=== PATIENT | female | born 1960 | race Caucasian/White ===

== ENCOUNTER 2016-06-24 18:49 | Observation (INO) | payer MEDICAID, OTHER ==
[2016-06-24] MEDS ORDERED: ALBUTEROL SULFATE 2.5 MG/0.5 ML VIAL.NEB IH ONE ×2 (21:04→21:34)
[2016-06-24] MEDS ORDERED: NORMAL SALINE 1,000 ML IV PRN (21:04)
--- NOTE | 2016-06-24 21:05 | ERNOTE ---
ER Female HPI Date of Service: 06/24/16 Stated Complaint: GI BLEEDING Time Seen by Provider: 06/24/16 20:55 Source: patient Exam Limitations: no limitations Immunizations: IMMUNIZATION HX Immunizations Up to Date Yes History of Influenza Vaccine No Hx Pneumococcal Vaccination No Allergies/Adverse Reactions: Allergies Penicillins Allergy (Intermediate, Verified 10/23/14 07:27) rash Sulfa (Sulfonamide Antibiotics) [Sulfa(Sulfonamide Antibiotics)] Allergy ( Intermediate, Verified 10/23/14 07:27) rash Home Medications: HOME MEDICATIONS Multivitamin [One Daily Essential] 1 each PO DAILY 06/24/16 [Last Taken Unknown] Omeprazole [Prilosec] 20 mg PO DAILY 06/24/16 [Last Taken Unknown] - History of Present Illness Narrative: 55 year old that complains of being weak, and has been progressive over the last week. Fell ont to her back two days ago, but did not have a head injury or LOC. Her and the patient are concerned that she may have "internal bleeding" as she did on another occasion which may be causing the weakness. The previous occasion whereby there were similar symptoms there was GI bleeding that required banding. Notes gross hematuria for two days. Complaint of right sided chest pain and abdominal pain for a few days. Drinks 4-6 beers daily for many years. Timing: Present: constant Quality: Present: moderate Activities at Onset: Present: none Prior Abdominal Problems: Present: none Modifying Factors - (Improves): Present: other - nothing Modifying Factors - (Worsens): Present: other - nothing Associated Symptoms: Present: denies symptoms Review of Systems - Narrative Narrative: Appears mildly jaundiced, but not in any distress. - Review of Systems Constitutional: Present: chills EYE: Present: no symptoms reported ENT: Present: no symptoms reported Respiratory: Present: no symptoms reported Cardiology: Present: chest pain Gastrointestinal/Abdominal: Present: abdominal pain Genitourinary: Present: other Musculoskeletal: Present: no symptoms reported Skin: Present: no symptoms reported Neurological: Present: no symptoms reported Endocrine: Present: no symptoms reported Hematologic/Lymphatic: Present: easy bleeding Psych: Present: no symptoms reported - Patient's Past Medical History Patient History - Medical: Anemia, Alcohol Abuse, GERD, Liver Disease, UTI'S Patient History - Cardiac/Respiratory: Other Patient History - Cancer: No Hx of Cancer Patient History - Surgical Procedures: Tubal Ligation Patient History - Other: None - Family History Mother Family History - Medical: Family History - Cancer: Lung Father Family History - Medical: , Renal Failure - Social History Living Situations: home Abuse History: No History of abuse Psych History: No pertinent hx Smoking Status: Current every day smoker Patient requests Smoking Cessation Consult: No Initiate information on Smoking Cessation: No Alcohol Use: heavy Drug Use: none - Immunizations Immunizations Up to Date: Yes Hx Pneumococcal Vaccination: No History of Influenza Vaccine: No Physical Exam - Physical Exam General Appearance: Present: no apparent distress Eye Exam: PERRL: bilateral, EOMI: bilateral, Scleral icterus: bilateral Ears, Nose, Throat: Present: normal ENT inspection Neck: Present: normal inspection, full range of motion Respiratory: Present: no respiratory distress, decreased breath sounds, wheezing - mild. 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 - Vital Signs Patient's Vital Signs:: I have reviewed the patient's vital signs. Vital Signs: Vital Signs 06/24/16 19:05 Temperature 38.7 C H Pulse Rate 135 H Respiratory 20 Rate Blood Pressure 157/68 O2 Sat by Pulse 95 Oximetry - EKG EKG: other EKG Comments: sinus tachycardia, rate 119, normal axis. No change from the previous EKG. - X-Ray X-Ray #1 X-Ray: chest Interpretation: Interp. by me X-ray Comments: NAD - CT/Ultrasound CT/Ultrasound Narrative: Stones in partially contracted gallbladder. Right perinephric stranding may be related to pyelosinus backflow/obstructive uropathy inflammatory /infectious process, or age-related. - Progress/Reassessment Chief Complaint: Genitourinary Problem Progress Note-Subjective: 06/25/16 00:53 Feeling better since getting one liter of fluid. 06/25/16 00:54 Discussed with Lorraine who has accepted the patient for admission. Hemodynamically stable. 06/25/16 00:59 06/25/16 07:28 Departure Clinical Impression: UTI (urinary tract infection), Hematuria, gross, Hyperbilirubinemia - Departure Disposition: [facility] Condition: Fair
[2016-06-24 21:23] LABS: Venous Blood Gas HCO3 17.1 mmol/L (22.0-29.0); Venous Blood Gas pH 7.38 (7.32-7.43)
[2016-06-24 21:26] LABS: Hematocrit 33.1 % (37.0-47.0); Hemoglobin 10.5 gm/dL (12.5-16.0); Mean Cell Volume 97.9 fl (78-100); Mean Corpuscular Hemoglobin 31.1 pg (27-31); Mean Corpuscular Hgb Conc 31.7 g/dl (32-36); Mean Platelet Volume 11.1 fl (6.0-9.5); Platelet Count 102 K/mm3 (150-450); Red Blood Count 3.38 M/mm3 (4.2-5.4); Red Cell Distribution Width 18.4 % (11.5-14.0); White Blood Count 7.9 K/mm3 (4.0-10.5)
[2016-06-24 21:35] LABS: Total Cells Counted 100
[2016-06-24 21:38] LABS: INR 1.17 INR (0.90-1.10); Partial Thrombolplastin Time 26.1 Seconds (24-32); Prothrombin Time (Patient) 12.2 Seconds (9.4-11.4)
[2016-06-24 21:51] LABS: Blood Urea Nitrogen 22 mg/dL (3-23); Glucose * 101 mg/dL (70-110)
[2016-06-24 21:52] LABS: ALT 18 U/L (19-67); AST 36 U/L (0-48); Albumin * 2.7 gm/dl (3.4-5.0); Alkaline Phosphatase * 166 U/L (50-170); Anion Gap 15.1 mmol/L (6.8-13.8); BUN/Creatinine Ratio 11.7 (9.0-21.6); Bilirubin, Total 2.3 mg/dL (0.0-1.1); Ca. Corrected For Albumin 9.9 mg/dL (8.4-10.2); Calcium * 9.2 mg/dL (7.9-10.9); Carbon Dioxide 20.1 mmol/L (24-32.6); Chloride 107 mmol/L (97-106); Potassium 3.2 mmol/L (3.4-4.6); Sodium 139 mmol/L (132-142); Total Protein 7.8 gm/dL (6.2-8.2); Troponin I Less than 0.017 ng/ml (0.00-0.10)
[2016-06-24 22:19] LABS: Urine Bilirubin 1 mg/dl (NEGATIVE); Urine Blood 250 /ul (NEGATIVE); Urine Ketone 5 mg/dL (NEGATIVE); Urine Nitrite Negative (NEGATIVE); Urine Protein 100 mg/dL (NEGATIVE); Urine Specific Gravity 1.025 SP.GR. (1.005-1.010); Urine Urobilinogen Normal (NORMAL)
[2016-06-24 22:42] LABS: Urine Appearance Turbid; Urine Bacteria 4+; Urine Color Red; Urine RBC >50 /hpf (0-5); Urine WBC 0-5 /hpf (0-5)
[2016-06-24 22:46] LABS: Band 8 % (0-2.0); Lymphocyte 3 % (20-51); Monocyte 4 % (0-9); Neutrophil 85 % (42-75); Neutrophil # 6.7 K/mm3 (1.3-6.0)
[2016-06-24 22:47] LABS: Platelet Estimate Decreased (NORMAL)
[2016-06-24 22:48] LABS: Anisocytosis 2+; Hypochromia 1+; Macrocytosis 1+; Poikilocytosis 1+
[2016-06-25] MEDS ORDERED: POTASSIUM CHLORIDE 20 MEQ TABLET.SA PO ONE (00:50)
[2016-06-25] MEDS ORDERED: POTASSIUM CHLORIDE 20 MEQ TABLET.SA ONE (01:11)
[2016-06-25] MEDS ORDERED: FLU VACC QS2016-17 36MOS UP/PF 60 MCG/0.5 ML DISP.SYRIN IM ONE ×2 (02:25→09:00)
[2016-06-25] MEDS ORDERED: NORMAL SALINE 1,000 ML IV PRN (02:50)
[2016-06-25] MEDS ORDERED: ALBUTEROL SULFATE/IPRATROPIUM 3 ML NEBU IH PRN (02:52)
[2016-06-25] MEDS ORDERED: NICOTINE 14 MG PATC TD SCH ×2 (03:00→03:58)
--- NOTE | 2016-06-25 03:26 | HP ---
Chief Complaint - Chief Complaint Date of Service: 06/25/16 Time of Service: 03:19 Chief Complaint: weakness, hematuria History of Present Illness: Pt is a 55 year old pt of Dr. Henderson with a PMH significant for:GIB (2014), alcoholic cirrhosis, anemia, ETOH abuse, and GERD who presented to the ER with c /o weakness and malaise. She is overall a poor historian and drifts in and out of sleep during my examination. She states that she started feeling bad about five days ago with sore throat, cough, malaise, and weakness. Since then her breathing has progressively gotten worse, now with tachypnea, expiratory wheezing, and dyspnea at rest. She also notes hematuria and dysuria for the past week. She has been taking bear back body at home for pain with slight improvement in her symptoms. Per EMR she fell onto to her back two days ago, but did not have a head injury or LOC. As well as complaints of right sided chest and abdominal pain for a few days. She denied this pain upon my examination. She drinks 4-6 beers daily and has so for many years. She has a history of GIB in 2010 and 2014. In the ER laboratory findings were significant for: WBC 7.9, H/H 10.5/33.1, Plt 102, 8% bands, 84% neutrophils, INR 1.17, Na+ 139, K+ 3.2, lactic acid 2.3, bili 2.3. + UA +4 bacteria, negative nitrates and leukocyte esterase. CT abdomen with evidence of intrarenal calculi as well as right perinephric straining possibly related to pyelosinus backflow/obstructive uropathy/inflammatory/infectious process/age related and fullness of right renal collecting system versus small peripelvic cyst. Chest xray negative. Will admit to observation overnight for further workup requiring IVF and IV antibiotic therapy. - Patient's Past Medical History Patient History - Medical: Anemia, Alcohol Abuse, GERD, Liver Disease, Renal Failure, UTI'S, Other - acute posthemorrhagic in 08/2010 and GIB 09/2014. Patient History - Cardiac/Respiratory: Other - rhumatic fever at 12 Patient History - Cancer: No Hx of Cancer Patient History - Surgical Procedures: Colonoscopy, EGD, Hysterectomy, Tubal Ligation, T & A, Other - tympanostomy, adeoidectomy, mastoidectomy, ORIF right radial head, d and C Patient History - Other: None LMP (females 10-50): Menopausal - Family History Mother Family History - Medical: Family History - Cancer: Lung Father Family History - Medical: , Renal Failure - Social History Living Situations: home Abuse History: Hx of Substance Use - ETOH 3-4 beers per day Psych History: No pertinent hx Does anyone smoke in the home?: Yes Smoking Status: Current every day smoker Cigarettes Packs Per Day: 1.5 - ppd Have you smoked in the past 12 months: Yes Do you dip or chew tobacco: No Patient requests Smoking Cessation Consult: No Initiate information on Smoking Cessation: No Alcohol Use: heavy Drug Use: none - Immunizations Immunizations Up to Date: Yes Hx Pneumococcal Vaccination: No History of Influenza Vaccine: No Review Of Systems (GEN) - Review of Systems Generalized/Overall Review: Present: Weakness, Chills, Fever, Malaise, Fatigue Respiratory: Present: Cough, Shortness of Breath, Orthopnea, Wheezing Abdominal: Present: No Symptoms Reported Genitourinary: Present: Hematuria Musculoskeletal: Present: No Symptoms Reported Neurological: Present: No Symptoms Reported Skin: Present: No Symptoms Reported Endocrine: Present: No Symptoms Reported Allergies/Adverse Reactions: Allergies Allergy/AdvReac Type Severity Reaction Status Date / Time Penicillins Allergy Intermediate rash Verified 10/23/14 07:27 Sulfa (Sulfonamide Allergy Intermediate rash Verified 10/23/14 07:27 Antibiotics) [Sulfa(Sulfonamide Antibiotics)] Home Medications: HOME MEDICATIONS Multivitamin [One Daily Essential] 1 each PO DAILY 06/24/16 [Last Taken Unknown] Omeprazole [Prilosec] 20 mg PO DAILY 06/24/16 [Last Taken Unknown] Exam - Exam Vital Signs: Vital Signs - Last Taken Temp 36.3 C L 06/25/16 01:44 Pulse 88 06/25/16 01:44 Resp 20 06/25/16 01:44 BP 170/80 06/25/16 01:44 Pulse Ox 96 RA 06/25/16 01:44 Constitutional: Present: Alert, Oriented x3, Cooperative, Mild distress, Overweight, Looks Younger than stated age ENT Exam: Present: normal ENT inspection, hearing grossly normal, moist mucous membranes Eye Exam: bilateral eye: normal inspection, PERRL Back Exam: Present: normal inspection, no CVA tenderness Respiratory: Present: respiratory distress, decreased breath sounds, crackles, wheezing, expiration (prolonged) Cardiovascular/Chest: Present: normal peripheral pulses, no chest tenderness, no edema, no murmur, tachycardia Peripheral Pulses: dorsalis-pedis (R): 2+, dorsalis-pedis (L): 2+, radial (R): 2 +, radial (L): 2+ Abdomen: Present: Normal bowel sounds, soft, nontender, nondistended, no rebound tenderness, no hepatospenomegaly, no masses Extremity: Present: normal range of motion, non-tender, normal inspection, no pedal edema, no calf tenderness, normal capillary refill Skin Exam: Present: normal color, warm/dry, no cyanosis Lymphatic: Present: no adenopathy Neurologic: Present: no motor/sensory deficits, alert, normal mood/affect, oriented x 3 Appearance: Present: appropriate appearance, appropriate insight, neat, no memory impairment, disheveled Eye contact: Present: cooperative, good eye contact, normal speech Thoughts: Present: normal thought pattern, no apparent hallucination Diagnostic Studies: Laboratory Results WBC 7.9 K/mm3 (4.0-10.5) 06/24/16 21:15 RBC 3.38 M/mm3 (4.2-5.4) L 06/24/16 21:15 Hgb 10.5 gm/dL (12.5-16.0) L 06/24/16 21:15 Hct 33.1 % (37.0-47.0) L 06/24/16 21:15 MCV 97.9 fl (78-100) 06/24/16 21:15 MCH 31.1 pg (27-31) H 06/24/16 21:15 MCHC 31.7 g/dl (32-36) L 06/24/16 21:15 RDW 18.4 % (11.5-14.0) H 06/24/16 21:15 Plt Count 102 K/mm3 (150-450) L 06/24/16 21:15 MPV 11.1 fl (6.0-9.5) H 06/24/16 21:15 Neutrophils % (Manual) 85 % (42-75) H 06/24/16 21:15 Band Neuts % (Manual) 8 % (0-2.0) H 06/24/16 21:15 Lymphocytes % (Manual) 3 % (20-51) L 06/24/16 21:15 Monocytes % (Manual) 4 % (0-9) 06/24/16 21:15 Neutrophils # (Manual) 6.7 K/mm3 (1.3-6.0) H 06/24/16 21:15 Lymphocytes # (Manual) 0.2 k/mm3 (1.5-3.5) L 06/24/16 21:15 Monocytes # (Manual) 0.3 k/mm3 (0.0-1.0) 06/24/16 21:15 Platelet Estimate Decreased (NORMAL) L 06/24/16 21:15 Hypochromasia 1+ 06/24/16 21:15 Poikilocytosis 1+ 06/24/16 21:15 Anisocytosis 2+ 06/24/16 21:15 Macrocytosis 1+ 06/24/16 21:15 PT 12.2 Seconds (9.4-11.4) H 06/24/16 21:15 INR (Anticoag Therapy) 1.17 INR (0.90-1.10) H 06/24/16 21:15 PTT (Kaylyn) 26.1 Seconds (24-32) 06/24/16 21:15 pCO2 24.8 mmHg (32.0-45.0) L 06/24/16 21:33 pO2 69.0 mmHg (83.0-108.0) L 06/24/16 21:33 HCO3 14.9 mmol/L (21.0-28.0) L 06/24/16 21:33 Total CO2 15.7 mmol/L (19.0-24.0) L 06/24/16 21:33 Base Excess -8.3 mmol/L (-2.0-3.0) L 06/24/16 21:33 ABG pH 7.40 (7.35-7.45) 06/24/16 21:33 ABG O2 Sat (Measured) 94.2 % (94.0-98.0) 06/24/16 21:33 VBG O2 Saturation 88.8 % (94.0-98.0) L 06/24/16 21:15 Sodium 139 mmol/L (132-142) 06/24/16 21:15 Plasma Sodium 139 mmol/L (130-142) 06/24/16 21:15 Potassium 3.2 mmol/L (3.4-4.6) L 06/24/16 21:15 Chloride 107 mmol/L (97-106) H 06/24/16 21:15 Carbon Dioxide 20.1 mmol/L (24-32.6) L 06/24/16 21:15 Anion Gap 15.1 mmol/L (6.8-13.8) H 06/24/16 21:15 BUN 22 mg/dL (3-23) 06/24/16 21:15 Creatinine 1.88 mg/dL (0.4-1.4) H 06/24/16 21:15 Est GFR (Non-Af Amer) 29 mL/min (60-130) L D 06/24/16 21:15 BUN/Creatinine Ratio 11.7 (9.0-21.6) 06/24/16 21:15 Random Glucose 101 mg/dL (70-110) 06/24/16 21:15 Lactic Acid, Venous 1.8 mmol/L (0.4-2.0) 06/25/16 00:30 Calcium 9.2 mg/dL (7.9-10.9) 06/24/16 21:15 Calcium Adj for Albumin 9.9 mg/dL (8.4-10.2) 06/24/16 21:15 Total Bilirubin 2.3 mg/dL (0.0-1.1) H 06/24/16 21:15 AST 36 U/L (0-48) 06/24/16 21:15 ALT 18 U/L (19-67) L 06/24/16 21:15 Alkaline Phosphatase 166 U/L (50-170) 06/24/16 21:15 Ammonia Less than 17.0 mcmol/L (11-35) 06/25/16 02:20 Troponin I Less than 0.017 ng/ml (0.00-0.10) 06/24/16 21:15 Total Protein 7.8 gm/dL (6.2-8.2) 06/24/16 21:15 Albumin 2.7 gm/dl (3.4-5.0) L 06/24/16 21:15 Urine Color Red 06/24/16 21:53 Urine Appearance Turbid 06/24/16 21:53 Urine pH 6.0 pH (5.0-7.0) 06/24/16 21:53 Ur Specific [place] 1.025 SP.GR. (1.005-1.010) 06/24/16 21:53 Urine Protein 100 mg/dL (NEGATIVE) H 06/24/16 21:53 Urine Glucose (UA) Negative mg/dL (NEGATIVE) 06/24/16 21:53 Urine Ketones 5 mg/dL (NEGATIVE) 06/24/16 21:53 Urine Blood 250 /ul (NEGATIVE) H 06/24/16 21:53 Urine Nitrate Negative (NEGATIVE) 06/24/16 21:53 Urine Bilirubin 1 mg/dl (NEGATIVE) H 06/24/16 21:53 Urine Ictotest Positive (NEGATIVE) H 06/24/16 21:53 Prot Sulfosalicylic Acd 4+ mg/dL (0) H 06/24/16 21:53 Urine Urobilinogen Normal EU/dl (NORMAL) 06/24/16 21:53 Ur Leukocyte Esterase Negative /ul (NEGATIVE) 06/24/16 21:53 Urine RBC >50 /hpf (0-5) H 06/24/16 21:53 Urine WBC 0-5 /hpf (0-5) 06/24/16 21:53 Ur Epithelial Cells None seen /hpf (0-5) 06/24/16 21:53 Urine Bacteria 4+ (NONE) H 06/24/16 21:53 Urine Culture Comments Culture to follow 06/24/16 21:53 Ethyl Alcohol Less than 3.0 mg/dL (0.0-10.0) 06/24/16 21:15 Blood Type O Positive 06/24/16 21:15 Antibody Screen Negative 06/24/16 21:15 Assessment/Plan - Assessment/Plan (1) UTI (urinary tract infection) Assessment: UA with presence of gross hematuria. Pt with history of alcoholic cirrhosis; platelets 102, INR slightly elevated at 1.17. CT abdomen with evidence of intrarenal calculi as well as right perinephric straining possibly related to pyelosinus backflow/obstructive uropathy/inflammatory/infectious process/age related and fullness of right renal collecting system versus small peripelvic cyst. Could possible benefit from urology consult. Question if UA was contaminated as +4 bacteria, but nitrates and leukocyte esterase negative...so possible UTI? Will repeat clean catch and repeat CBC in am. Place patient on Rocephin 1gm Q24H until culture result finalized as pt was febrile and tachycardic upon admission with evidence of SIRS. -Rocephin 1gm IV Q24H -CBC in am -Repeat UA -Possible urology consult Problem: Suspected Qualifiers: Urinary tract infection type: acute pyelonephritis Qualified Code(s): N10 - Acute pyelonephritis (2) Lice infestation Assessment: Pt with large matted hair and presence of nets and lice. Will most likely need shaved as there is no possible way to untangle her hair. Will order permethrin application. -Permethrin application Problem: Acute (3) Hypocapnia Assessment: Pt presented with anxiety and tachypnea. Scattered expiratory wheezing throughout with crackles. Pt denies sputum production. Differential includes: PE , ETOH withdraw, anxiety, or PN. D-dimer slightly elevated, but CT negative for PE. Chest xray without any acute abnormalities. Febrile at 38.2 on admission, however has been afebrile since admission. No presence of leukocytosis, but 8 band present. Lactic acid elevated at 2.3. Will check procalitonin, influenza A+ B, BNP and repeat ABG as well as chest xray this am. Maintain O2>90%, xopenex Q4H scheduled and Q2H PRN. -Xopenex Q4H scheduled, Q2H PRN -Repeat lactic acid -Repeat ABG -CBC in am -Maintain O2>90% -IS -Procalcitonin -Influenza A/b -Sputum culture -BNP Problem: Acute (4) Tobacco abuse Assessment: -21mg TD nicotine patch Problem: Acute (5) Hypokalemia Assessment: Hypokalemic at 3.2 on admission, replaced with 40meq of PO KCL in ER, will repeat in am. -CMP in am Problem: Acute (6) ETOH abuse Assessment: Last drink 2 days ago, per pt still drinks 3-4 beers per [address] place on CIWA protocol. Pt is tachycardic, tremulous, and anxious with hypocapnia, could be beginning to go through withdraw, will continue to monitor closely. Place on telemetry. ETOH less than 3 on admission. Banana bag Q24H. -CIWA protocol -Banana bag Q24H -Telemetry Problem: Chronic (7) ALC (alcoholic liver cirrhosis) Assessment: Chronic, pt still continues to drink 3-4 beers per day. States her last drink was two days ago. Hyperbilirubinemia present at 2.3, last result from 2014 was 2.9. Slight coagulation deficiency present, platelets 102 and INR 1.17, no s/s of acute bleeding present, vital stable. Will obtain occult stool for blood. -CMP in am -Occult stool for blood Problem: Chronic Qualifiers: Ascites presence: without ascites Qualified Code(s): K70.30 - Alcoholic cirrhosis of liver without ascites (8) Anemia Assessment: Pt with longstanding history of anemia related to chronic kidney disease and ETOH abuse. Will repeat in am, possible iron studies as outpt. History of GIB, occult stool for blood as well. -CBC in am -Occult stool for blood Problem: Chronic Qualifiers: Other causes of anemia: chronic disease, kidney (9) CKD (chronic kidney disease) Assessment: Stable, current creatinine 1.88, baseline 2. Will hydrate with IVF overnight and repeat CMP in am. -CMP in am -.9 @125ml/hr Problem: Chronic
[2016-06-25] MEDS ORDERED: ALBUTEROL SULFATE/IPRATROPIUM 3 ML NEBU IH SCH (03:47)
[2016-06-25] MEDS ORDERED: LEVALBUTEROL HCL 0.63 MG/3 ML AMPUL IH PRN (03:49)
[2016-06-25] MEDS ORDERED: PERMETHRIN 60 APPL TUBE TP ONE ×2 (03:51→09:00)
[2016-06-25] MEDS ORDERED: LORazepam 1 MG TABLET PO PRN ×3 (04:30)
[2016-06-25] MEDS: MULTIVIT INFUSN,ADULT 4,VIT K 10 ML, THIAMINE HCL 100 MG in DEXTROSE 5 % IN WATER 1,000 ML IV SCH ×9 (05:40→22:57)
[2016-06-25] MEDS ORDERED: NICOTINE 21 MG PATC TD ONE (06:15)
[2016-06-25 06:42] LABS: Hematocrit 28.2 % (37.0-47.0); Mean Cell Volume 98.3 fl (78-100); Mean Corpuscular Hemoglobin 31.4 pg (27-31); Mean Corpuscular Hgb Conc 31.9 g/dl (32-36); Mean Platelet Volume 10.5 fl (6.0-9.5); Red Blood Count 2.87 M/mm3 (4.2-5.4); Red Cell Distribution Width 18.7 % (11.5-14.0); White Blood Count 9.8 K/mm3 (4.0-10.5)
[2016-06-25 06:54] LABS: Total Cells Counted 100
[2016-06-25] MEDS ORDERED: PANTOPRAZOLE SODIUM 20 MG TABLET.DR PO SCH (07:00)
[2016-06-25 07:07] LABS: Albumin * 2.2 gm/dl (3.4-5.0); Anion Gap 16.6 mmol/L (6.8-13.8); BUN/Creatinine Ratio 10.8 (9.0-21.6); Bilirubin, Total 1.9 mg/dL (0.0-1.1); Ca. Corrected For Albumin 9.6 mg/dL (8.4-10.2); Calcium * 8.5 mg/dL (7.9-10.9); Carbon Dioxide 16.4 mmol/L (24-32.6); Total Protein 6.9 gm/dL (6.2-8.2)
[2016-06-25 07:09] LABS: Band 20 % (0-2.0); Lymphocyte 2 % (20-51); Monocyte 6 % (0-9); Neutrophil 72 % (42-75); Neutrophil # 7.1 K/mm3 (1.3-6.0)
[2016-06-25] MEDS: LEVALBUTEROL HCL 0.63 MG/3 ML AMPUL IH SCH ×5 (07:09→22:11)
[2016-06-25] MEDS ORDERED: [UNRECOGNIZED DRUG - OTHER] TP ONE (07:11)
[2016-06-25 07:15] LABS: Platelet Estimate Decreased (NORMAL)
[2016-06-25 07:16] LABS: Platelet Count 71 K/mm3 (150-450)
[2016-06-25] MEDS ORDERED: MULTIVITAMINS 1 CAP CAPSULE PO SCH (09:00)
[2016-06-25] MEDS ORDERED: NICOTINE 21 MG PATC TD SCH (09:00)
--- NOTE | 2016-06-25 14:14 | CONS ---
HPI - General Narrative: 55-year-old female with cirrhosis from alcoholism, anemia and history of recurrent infection admitted for right-sided pyelonephritis. 2014 urine culture: Escherichia coli susceptible Urine culture: Gram-negative susceptibility pending Creatinine history: 07/11 2.03 06/10 CT scan without evidence of obstruction, there is significant right perinephric stranding consistent with pyelonephritis. Location: Right flank Duration: Days Severity/Stage: Was severe now mild Associated Sx's: Some fevers and chills, none currently Modifying factors: Better with antibiotics Quality: Dull ache with sharp component Past medical history: Cirrhosis from alcoholism. Some lung issues from smoking. No prior stone history. Not diabetic Past surgical history: No prior urologic surgery Social history: Smoker/drinker Family history: Noncontributory Review of systems: General: No current fevers but she did have subjective fevers chills and fatigue Lungs: Occasional shortness of breath with cough, smoker Heart: No chest pain GI: History of cirrhosis, denies bowel issues Musculoskeletal: Some aches and pains Endocrine: Not diabetic : History of recurrent infection and recurrent hematuria. 14 point review of systems otherwise negative, important positives noted - History of Present Illness Allergies/Adverse Reactions: Allergies Penicillins Allergy (Intermediate, Verified 10/23/14 07:27) rash Sulfa (Sulfonamide Antibiotics) [Sulfa(Sulfonamide Antibiotics)] Allergy ( Intermediate, Verified 10/23/14 07:27) rash Home Medications: Home Medications Medication Instructions Recorded Last Taken Multivitamin [One Daily Essential] 1 each PO DAILY 06/24/16 Unknown Omeprazole [Prilosec] 20 mg PO DAILY 06/24/16 Unknown - Patient's Past Medical History Patient History - Medical: Anemia, Alcohol Abuse, GERD, Liver Disease, UTI'S Patient History - Cardiac/Respiratory: Other Patient History - Cancer: No Hx of Cancer Patient History - Surgical Procedures: Tubal Ligation Patient History - Other: None LMP (females 10-50): Menopausal - Family History Mother Family History - Medical: Family History - Cancer: Lung Father Family History - Medical: , Renal Failure - Social History Living Situations: home Abuse History: No History of abuse Psych History: No pertinent hx Does anyone smoke in the home?: Yes Smoking Status: Current every day smoker Cigarettes Packs Per Day: 1.5 - ppd Have you smoked in the past 12 months: Yes Do you dip or chew tobacco: No Smoking Start Date: 06/24/75 Patient requests Smoking Cessation Consult: No Initiate information on Smoking Cessation: No Alcohol Use: heavy Drug Use: none - Immunizations Immunizations Up to Date: Yes Hx Pneumococcal Vaccination: No History of Influenza Vaccine: No Procedures BEHAVIOR THERAPY (07/21/10) COLONOSCOPY (01/13/11) D & C NEC (02/24/13) ESOPHAGOGASTRODUODENOSCOPY [EGD] W/CLOSED BIOPSY (10/21/14) OP RED-INT FIX RAD/ULNA (09/27/12) Medications - Medications Current Medications: Current Medications Sodium Chloride (Sodium Chloride 0.9%) 1,000 mls @ 999 mls/hr IV .Q1H1M PRN PRN Reason: HYDRATION Stop: 07/24/16 21:05 Last Admin: 06/24/16 21:39 Dose: 999 mls/hr Sodium Chloride (Sodium Chloride 0.9%) 1,000 mls @ 125 mls/hr IV .Q8H PRN PRN Reason: HYDRATION Stop: 07/25/16 02:51 Last Admin: 06/25/16 03:49 Dose: 125 mls/hr Parenteral Vitamin Supplement 10 ml/ Thiamine HCl 100 mg/Dextrose/Water 1,011 mls @ 125 mls/hr IV .Q8H6M [facility] Stop: 07/25/16 04:01 Last Admin: 06/25/16 12:46 Dose: 125 mls/hr Levalbuterol HCl (Xopenex) 0.63 mg IH Q4HRT RIYA Stop: 07/25/16 07:01 Last Admin: 06/25/16 10:32 Dose: 0.63 mg Levalbuterol HCl (Xopenex) 0.63 mg IH Q2H PRN PRN Reason: wheezing Stop: 07/25/16 03:50 Last Admin: 06/25/16 04:37 Dose: 0.63 mg Nicotine (Nicoderm) 21 mg TD Q24H [facility] Stop: 07/25/16 09:01 Last Admin: 06/25/16 09:08 Dose: 21 mg Pantoprazole Sodium (Protonix) 20 mg PO DAILY@0700 [facility] Stop: 07/25/16 07:01 Last Admin: 06/25/16 07:02 Dose: 20 mg Physical Examination - Exam Narrative: General: No acute distress, nontoxic, looks older than stated age Psych: Alert and oriented HEENT: EOM grossly intact Lungs: Respirations unlabored, clear Abdomen: Significantly obese otherwise benign Neuro: sensation intact Extremities: Moves all 4 without difficulty Heart: Regular Skin: No obvious rashes Back: No true CVA tenderness, did feel a little discomfort on the right during exam Vital Signs: Vital Signs - Last Taken Temp 98.2 F 06/25/16 10:21 Pulse 87 06/25/16 10:42 Resp 18 06/25/16 10:42 BP 128/64 06/25/16 10:21 Pulse Ox 95 06/25/16 10:32 O2 Oxygen Delivery Method Room Air - Results and Findings: Narrative: #1 pyelonephritis with gross hematuria: CT with significant right-sided perirenal inflammation but no obstruction. Gram-negative culture pending on appropriate antibiotics currently as clinically she is looking better. My recommendation is to treat as if pyelonephritis for 10-14 days, can transition to oral once susceptibilities known. Would use quinolone/Bactrim or cephalosporin depending on susceptibilities. My plan is to proceed next Thursday with cystogram, cystoscopy with possible biopsy, retrogrades, possible stent depending on intraoperative findings. I am likely to recommend prophylactic antibiotic or bacteriostatic agents but we 'll make decision after surgery once susceptibilities are known. Lab/Microbiology results last 24 hrs: Abnormal/Pending Laboratory Last 24 HRS 06/25/16 06/25/16 06/25/16 09:43 06:30 06:30 RBC 2.87 L Hgb 9.0 L Hct 28.2 L MCH 31.4 H MCHC 31.9 L RDW 18.7 H Plt Count 71 L MPV 10.5 H Band Neuts % (Manual) 20 H Lymphocytes % (Manual) 2 L Neutrophils # (Manual) 7.1 H Lymphocytes # (Manual) 0.2 L Platelet Estimate Decreased L pCO2 24.8 L pO2 68.0 L HCO3 14.8 L Total CO2 15.6 L Base Excess -8.5 L ABG O2 Sat (Measured) 93.9 L Chloride 110 H Carbon Dioxide 16.4 L Anion Gap 16.6 H Creatinine 2.03 H Est GFR (Non-Af Amer) 27 L Random Glucose 131 H Total Bilirubin 1.9 H ALT 14 L B-Natriuretic Peptide 1564 H Albumin 2.2 L Procalcitonin 06/25/16 06/25/16 04:03 03:53 RBC Hgb Hct MCH MCHC RDW Plt Count MPV Band Neuts % (Manual) Lymphocytes % (Manual) Neutrophils # (Manual) Lymphocytes # (Manual) Platelet Estimate pCO2 19.3 L* pO2 74.0 L HCO3 11.5 L Total CO2 12.1 L Base Excess -11.8 L ABG O2 Sat (Measured) Chloride Carbon Dioxide Anion Gap Creatinine Est GFR (Non-Af Amer) Random Glucose Total Bilirubin ALT B-Natriuretic Peptide Albumin Procalcitonin 29.51 H
[2016-06-25 17:06] LABS: Urine Bilirubin Negative (NEGATIVE); Urine Blood 250 /ul (NEGATIVE); Urine Ketone Negative (NEGATIVE); Urine Protein >=300 mg/dL (NEGATIVE); Urine Specific Gravity 1.015 SP.GR. (1.005-1.010); Urine Urobilinogen Normal (NORMAL); Urine pH 6.5 pH (5.0-7.0)
[2016-06-25 17:29] LABS: Urine Appearance Turbid; Urine Color Red; Urine Nitrite Positive (NEGATIVE); Urine RBC >50 /hpf (0-5); Urine WBC 0-5 /hpf (0-5)
[2016-06-25 17:30] LABS: Urine Bacteria 3+; Urine Other Crystal Many - 3+ /hpf
[2016-06-26] MEDS: LEVALBUTEROL HCL 0.63 MG/3 ML AMPUL IH SCH (03:05)
[2016-06-26] MEDS ORDERED: HYDROcodone/ACETAMINOPHEN 1 EACH TABLET PO PRN (03:16)
[2016-06-26] MEDS ORDERED: ONDANSETRON HCL/PF 2 MG/ML VIAL IV PRN (03:29)
[2016-06-26] MEDS ORDERED: NORMAL SALINE 1,000 ML IV PRN (03:39)
[2016-06-26 03:52] LABS: Hematocrit 26.7 % (37.0-47.0); Hemoglobin 8.4 gm/dL (12.5-16.0)
[2016-06-26 03:53] LABS: Hematocrit 26.8 % (37.0-47.0); Hemoglobin 8.3 gm/dL (12.5-16.0); Mean Cell Volume 99.3 fl (78-100); Mean Corpuscular Hemoglobin 30.7 pg (27-31); Mean Platelet Volume 10.9 fl (6.0-9.5); Neutrophil # 12.5 K/mm3 (1.3-6.0); Platelet Count 138 K/mm3 (150-450); Red Cell Distribution Width 18.9 % (11.5-14.0); White Blood Count 16.4 K/mm3 (4.0-10.5)
[2016-06-26 04:00] LABS: Anion Gap 13.7 mmol/L (6.8-13.8); BUN/Creatinine Ratio 22.3 (9.0-21.6); Calcium * 8.2 mg/dL (7.9-10.9); Carbon Dioxide 20.5 mmol/L (24-32.6); Estimated Creat Clear 18.2; Potassium 4.2 mmol/L (3.4-4.6)
[2016-06-26] MEDS ORDERED: OCTREOTIDE ACETATE IV PRN ×2 (04:12)
[2016-06-26] MEDS ORDERED: WATER IV PRN ×2 (04:12)
[2016-06-26] MEDS ORDERED: DEXTROSE 5% IV PRN ×2 (04:12)
[2016-06-26] MEDS ORDERED: OCTREOTIDE ACETATE 50 MCG/ML VIAL IV ONE (04:12)
[2016-06-26 05:43] VITALS: BP 118/83
--- NOTE | 2016-06-26 05:58 | DS ---
Transfer Discharge Summary - Diagnosis(s)/Problems (1) Hematuria, gross Problem: Acute (2) ALC (alcoholic liver cirrhosis) Problem: Chronic (3) CKD (chronic kidney disease) Problem: Chronic (4) Acute blood loss anemia Problem: Acute (5) GI bleeding Problem: Acute (6) Hematemesis Problem: Acute (7) Pyelonephritis Problem: Acute - Course Description of Stay: Pt is a 55 year old pt of Dr. Henderson with a PMH significant for:upper GIB ( 2014) with banding at [facility], alcoholic cirrhosis ( pt continues to drink 3-6 beers daily) anemia, and GERD. She was adm with reports of weakness and malaise. She is overall a poor historian and additional information obtained from previous records. pt was noted in ER to have gross hematuria CT showered Renal calculi and she is been treated for pyelonephritis. Plans for pt to be seen by urologist and schedule cystoscopy on Thursday. In the ER laboratory findings were significant for: WBC 7.9, H/H 10.5/33.1, Plt 102, 8% bands, 84% neutrophils, INR 1.17, Na+ 139, K+ 3.2, lactic acid 2.3, bili 2.3. + UA +4 bacteria, negative nitrates and leukocyte esterase. CT abdomen with evidence of intrarenal calculi as well as right perinephric straining possibly related to pyelosinus backflow/obstructive uropathy/inflammatory/infectious process/age related and fullness of right renal collecting system versus small peripelvic cyst. Chest xray negative. During this adm pt was observed to have gross hematemesis on adm Hgb 10.0---> 8.4, concerns for recurrent esophageal varices bleeding, despite banding in 2014. [facility] was consulted for transfer, Dr. Coburn accepted transfer. Prior to transfer she was treated with Rocephine, Octreotide, Protonix and IVF, and had 2 UPRBC on hold. Pt to be air-vac to receiving facility. Consultation Done:: Urologist Procedures Performed: none - Results and Findings Results and Findings: Laboratory Results - last 24 hr 06/25/16 06/25/16 06/25/16 06:13 06:30 06:30 WBC 9.8 D RBC 2.87 L Hgb 9.0 L Hct 28.2 L MCV 98.3 MCH 31.4 H MCHC 31.9 L RDW 18.7 H Plt Count 71 L MPV 10.5 H Immature Gran % (Auto) Immature Gran # (Auto) Neutrophils % Neutrophils % (Manual) 72 Band Neuts % (Manual) 20 H Lymphocytes % Lymphocytes % (Manual) 2 L Monocytes % Monocytes % (Manual) 6 Eosinophils % Basophils % Nucleated RBC % Neutrophils # Neutrophils # (Manual) 7.1 H Lymphocytes # Lymphocytes # (Manual) 0.2 L Monocytes # Monocytes # (Manual) 0.6 Eosinophils # Absolute Basophils Toxic Vacuolation 1+ Platelet Estimate Decreased L pCO2 pO2 HCO3 Total CO2 Base Excess ABG pH ABG O2 Sat (Measured) Sodium 139 Plasma Sodium 139 Potassium 4.0 D Chloride 110 H Carbon Dioxide 16.4 L Anion Gap 16.6 H BUN 22 Creatinine 2.03 H Est GFR (Non-Af Amer) 27 L BUN/Creatinine Ratio 10.8 Random Glucose 131 H Calcium 8.5 Calcium Adj for Albumin 9.6 Total Bilirubin 1.9 H AST 28 ALT 14 L Alkaline Phosphatase 113 Ammonia B-Natriuretic Peptide 1564 H Total Protein 6.9 Albumin 2.2 L Urine Color Urine Appearance Urine pH Ur Specific [place] Urine Protein Urine Glucose (UA) Urine Ketones Urine Blood Urine Nitrate Urine Bilirubin Prot Sulfosalicylic Acd Urine Urobilinogen Ur Leukocyte Esterase Urine RBC Urine WBC Ur Epithelial Cells Other Crystals Urine Bacteria Gastric Occult Blood Stool Occult Blood Influenza Type A Ag Negative Influenza Type B Ag Negative 06/25/16 06/25/16 06/25/16 09:10 09:43 16:40 WBC RBC Hgb Hct MCV MCH MCHC RDW Plt Count MPV Immature Gran % (Auto) Immature Gran # (Auto) Neutrophils % Neutrophils % (Manual) Band Neuts % (Manual) Lymphocytes % Lymphocytes % (Manual) Monocytes % Monocytes % (Manual) Eosinophils % Basophils % Nucleated RBC % Neutrophils # Neutrophils # (Manual) Lymphocytes # Lymphocytes # (Manual) Monocytes # Monocytes # (Manual) Eosinophils # Absolute Basophils Toxic Vacuolation Platelet Estimate pCO2 24.8 L pO2 68.0 L HCO3 14.8 L Total CO2 15.6 L Base Excess -8.5 L ABG pH 7.40 ABG O2 Sat (Measured) 93.9 L Sodium Plasma Sodium Potassium Chloride Carbon Dioxide Anion Gap BUN Creatinine Est GFR (Non-Af Amer) BUN/Creatinine Ratio Random Glucose Calcium Calcium Adj for Albumin Total Bilirubin AST ALT Alkaline Phosphatase Ammonia 19.0 B-Natriuretic Peptide Total Protein Albumin Urine Color Red Urine Appearance Turbid Urine pH 6.5 Ur Specific [place] 1.015 Urine Protein >=300 H Urine Glucose (UA) Negative Urine Ketones Negative Urine Blood 250 H Urine Nitrate Positive H Urine Bilirubin Negative Prot Sulfosalicylic Acd 4+ H Urine Urobilinogen Normal Ur Leukocyte Esterase 25 H Urine RBC >50 H Urine WBC 0-5 Ur Epithelial Cells None seen Other Crystals Many - 3+ H Urine Bacteria 3+ H Gastric Occult Blood Stool Occult Blood Influenza Type A Ag Influenza Type B Ag 06/26/16 06/26/16 06/26/16 01:18 03:36 03:45 WBC RBC Hgb Hct MCV MCH MCHC RDW Plt Count MPV Immature Gran % (Auto) Immature Gran # (Auto) Neutrophils % Neutrophils % (Manual) Band Neuts % (Manual) Lymphocytes % Lymphocytes % (Manual) Monocytes % Monocytes % (Manual) Eosinophils % Basophils % Nucleated RBC % Neutrophils # Neutrophils # (Manual) Lymphocytes # Lymphocytes # (Manual) Monocytes # Monocytes # (Manual) Eosinophils # Absolute Basophils Toxic Vacuolation Platelet Estimate pCO2 pO2 HCO3 Total CO2 Base Excess ABG pH ABG O2 Sat (Measured) Sodium 134 Plasma Sodium 135 Potassium 4.2 Chloride 104 Carbon Dioxide 20.5 L Anion Gap 13.7 BUN 61 H D Creatinine 2.73 H D Est GFR (Non-Af Amer) 19 L D BUN/Creatinine Ratio 22.3 H Random Glucose 143 H Calcium 8.2 Calcium Adj for Albumin Total Bilirubin AST ALT Alkaline Phosphatase Ammonia B-Natriuretic Peptide Total Protein Albumin Urine Color Urine Appearance Urine pH Ur Specific [place] Urine Protein Urine Glucose (UA) Urine Ketones Urine Blood Urine Nitrate Urine Bilirubin Prot Sulfosalicylic Acd Urine Urobilinogen Ur Leukocyte Esterase Urine RBC Urine WBC Ur Epithelial Cells Other Crystals Urine Bacteria Gastric Occult Blood Positive H Stool Occult Blood Positive H Influenza Type A Ag Influenza Type B Ag 06/26/16 06/26/16 03:45 03:45 WBC 16.4 H D RBC 2.70 L Hgb 8.3 L 8.4 L Hct 26.8 L 26.7 L MCV 99.3 MCH 30.7 MCHC 31.0 L RDW 18.9 H Plt Count 138 L MPV 10.9 H Immature Gran % (Auto) 1.30 H Immature Gran # (Auto) 0.21 H Neutrophils % 76.0 H Neutrophils % (Manual) Band Neuts % (Manual) Lymphocytes % 12.5 L Lymphocytes % (Manual) Monocytes % 8.8 Monocytes % (Manual) Eosinophils % 1.0 Basophils % 0.4 Nucleated RBC % 0.0 Neutrophils # 12.5 H Neutrophils # (Manual) Lymphocytes # 2.1 Lymphocytes # (Manual) Monocytes # 1.5 H Monocytes # (Manual) Eosinophils # 0.2 Absolute Basophils 0.1 Toxic Vacuolation Platelet Estimate pCO2 pO2 HCO3 Total CO2 Base Excess ABG pH ABG O2 Sat (Measured) Sodium Plasma Sodium Potassium Chloride Carbon Dioxide Anion Gap BUN Creatinine Est GFR (Non-Af Amer) BUN/Creatinine Ratio Random Glucose Calcium Calcium Adj for Albumin Total Bilirubin AST ALT Alkaline Phosphatase Ammonia B-Natriuretic Peptide Total Protein Albumin Urine Color Urine Appearance Urine pH Ur Specific [place] Urine Protein Urine Glucose (UA) Urine Ketones Urine Blood Urine Nitrate Urine Bilirubin Prot Sulfosalicylic Acd Urine Urobilinogen Ur Leukocyte Esterase Urine RBC Urine WBC Ur Epithelial Cells Other Crystals Urine Bacteria Gastric Occult Blood Stool Occult Blood Influenza Type A Ag Influenza Type B Ag - Medications Medications: Active Medications Sodium Chloride (Sodium Chloride 0.9%) 1,000 mls @ 999 mls/hr IV .Q1H1M PRN PRN Reason: HYDRATION Stop: 07/24/16 21:05 Last Admin: 06/24/16 21:39 Dose: 999 mls/hr Ceftriaxone Sodium 1,000 mg/ (Dextrose/Water) 100 mls @ 200 mls/hr IV Q24H RIYA PRN Reason: Protocol Stop: 07/26/16 01:01 Last Infusion: 06/26/16 03:44 Dose: Infused Sodium Chloride (Sodium Chloride 0.9%) 1,000 mls @ 125 mls/hr IV .Q8H PRN PRN Reason: HYDRATION Stop: 07/26/16 03:40 Last Admin: 06/26/16 04:04 Dose: 125 mls/hr Levalbuterol HCl (Xopenex) 0.63 mg IH Q4HRT RIYA Stop: 07/25/16 07:01 Last Admin: 06/26/16 03:05 Dose: 0.63 mg Levalbuterol HCl (Xopenex) 0.63 mg IH Q2H PRN PRN Reason: wheezing Stop: 07/25/16 03:50 Last Admin: 06/25/16 04:37 Dose: 0.63 mg Nicotine (Nicoderm) 21 mg TD Q24H [facility] Stop: 07/25/16 09:01 Last Admin: 06/25/16 09:08 Dose: 21 mg Ondansetron HCl (Zofran) 4 mg IV Q6H PRN PRN Reason: Nausea And Vomiting Stop: 07/26/16 03:30 Last Admin: 06/26/16 03:51 Dose: 4 mg Pantoprazole Sodium (Protonix) 20 mg PO DAILY@0700 [facility] Stop: 07/25/16 07:01 Last Admin: 06/25/16 07:02 Dose: 20 mg Discontinued Medications Albuterol Sulfate (Albuterol Sulfate 2.5 Mg/0.5ml) 2.5 mg IH ONCE ONE Stop: 06/24/16 21:05 Last Admin: 06/24/16 21:35 Dose: 2.5 mg Ceftriaxone Sodium 1,000 mg/ (Dextrose/Water) 100 mls @ 200 mls/hr IV ONCE ONE PRN Reason: Protocol Stop: 06/25/16 01:12 Last Admin: 06/25/16 01:03 Dose: 200 mls/hr Sodium Chloride (Sodium Chloride 0.9%) 1,000 mls @ 125 mls/hr IV .Q8H PRN PRN Reason: HYDRATION Stop: 07/25/16 02:51 Last Admin: 06/25/16 03:49 Dose: 125 mls/hr Ceftriaxone Sodium 1,000 mg/ (Dextrose/Water) 100 mls @ 200 mls/hr IV Q24H RIYA PRN Reason: Protocol Stop: 07/25/16 03:01 Last Admin: 06/25/16 10:42 Dose: Not Given Parenteral Vitamin Supplement 10 ml/ Thiamine HCl 100 mg/Dextrose/Water 1,011 mls @ 125 mls/hr IV .Q8H6M [facility] Stop: 07/25/16 04:01 Last Infusion: 06/26/16 03:52 Dose: Infused Influenza Virus Vaccine Quadrival (Fluarix Quad [id number] Syringe) 60 mcg IM .ONCE ONE Stop: 06/25/16 09:01 Last Admin: 06/25/16 09:07 Dose: 60 mcg Nicotine (Nicoderm) 21 mg TD Q24H [facility] Stop: 07/25/16 03:59 Last Admin: 06/25/16 10:42 Dose: Not Given Octreotide Acetate (Sandostatin) 50 mcg IV ONCE ONE Stop: 06/26/16 04:13 Last Admin: 06/26/16 05:02 Dose: 50 mcg Potassium Chloride (K-Dur) 40 meq PO ONCE ONE Stop: 06/25/16 00:51 Last Admin: 06/25/16 01:12 Dose: 40 meq Pyrethrins/Piperonyl Butoxide (Rid Lice Solution Kit) 1 each TP ONCE ONE Stop: 06/25/16 07:12 Last Admin: 06/25/16 09:07 Dose: 1 each - Disposition Disposition: [facility] Condition: Fair Discharge Date: 06/26/16 Discharge Time: 05:20
== END 2016-06-26 05:30 | disposition short-term general hospital (02) ==
LOC: ER 18:49 → MS 06-25 01:37
PROVIDERS: ADMIT Nurse Practitioner Gerontology; ATTEND Internal Medicine
DX: N10 Acute pyelonephritis (principal); B96.20 Unspecified Escherichia coli [E. coli] as the cause of diseases classified elsewhere; K92.0 Hematemesis; E87.6 Hypokalemia; F10.10 Alcohol abuse, uncomplicated; Z72.0 Tobacco use; B85.2 Pediculosis, unspecified; K70.30 Alcoholic cirrhosis of liver without ascites; N18.9 Chronic kidney disease, unspecified; D63.1 Anemia in chronic kidney disease; D62 Acute posthemorrhagic anemia